=== PATIENT | female | born 1960 | race Caucasian/White ===

== ENCOUNTER 2022-01-14 16:38 | Outpatient (CLI) | payer OTHER | END 2022-01-14 16:39 | disposition home or self-care (01) | LOC: SCSRAD 16:38 | PROVIDERS: ATTEND Family Medicine | DX: R10.9 Unspecified abdominal pain (principal); M47.898 Other spondylosis, sacral and sacrococcygeal region | CPT/HCPCS: 72202; 72220 ==

== ENCOUNTER 2022-01-25 08:29 | Outpatient (CLI) | payer OTHER | END 2022-01-25 08:30 | disposition home or self-care (01) | LOC: ULT 08:29 | PROVIDERS: ATTEND Family Medicine | DX: R10.9 Unspecified abdominal pain (principal); R93.89 Abnormal findings on diagnostic imaging of other specified body structures; K76.0 Fatty (change of) liver, not elsewhere classified | CPT/HCPCS: 76700; 76856 ==

== ENCOUNTER 2022-03-14 09:05 | Outpatient (CLI) | payer OTHER ==
[2022-03-14 17:50] LABS: SARS-CoV-2 PCR by NAA Not Detected (NotDetected)
== END 2022-03-14 09:06 | disposition home or self-care (01) ==
LOC: LABBT 09:05
PROVIDERS: ATTEND Internal Medicine Gastroenterology
DX: Z20.822 Contact with and (suspected) exposure to COVID-19 (principal)
CPT/HCPCS: U0003; U0005

== ENCOUNTER 2022-03-21 08:40 | Outpatient (CLI) | payer OTHER | END 2022-03-21 08:41 | disposition home or self-care (01) | LOC: BICMAMMO 08:40 | PROVIDERS: ATTEND Family Medicine | DX: Z12.31 Encounter for screening mammogram for malignant neoplasm of breast (principal) | CPT/HCPCS: 77063; 77067 ==